=== PATIENT | female | born 1955 | race Asian ===

== ENCOUNTER 2016-10-26 16:06 | Inpatient (IN) | payer MEDICARE, MEDICAID ==
[~2016-10-26] VITALS: Ht 162.6 cm; Wt 100.7 kg
[~2016-10-26 16:06] MED LIST: AMLO5TAB88 PO; BACL-141 PO; BENA20TA3 PO; CHOL20004 PO; CLON0.1T PO; COLL30OI TP; DIPH25CA6 PO; DULO60CA44 PO; FLUT16SP15 NS; INSU100C3 SUBCUT; INSU3INS6 SQ; LINA145C PO; ONDA4TAB50 PO; OXYC30TA89 PO; PANT40TA4 PO; ROSU10TA24 PO; SEVE800T8 PO
[2016-10-26] MEDS ORDERED: SODIUM CHLORIDE 0.9% 500 ML IV ONE (16:44)
[2016-10-26] MEDS ORDERED: DEXTROSE 50% WATER 50ML SYRINGE IV ONE (16:45)
[2016-10-26 17:15] LABS: BG BASE EXCESS -0.3 mmol/L (-2.0-2.0); BG CARBOXYHEMOGLOBIN 0.9 % (0.5-1.5); BG DEOXYHEMOGLOBIN 4.9 % (0.0-5.0); BG FRACTION INSPIRED OXYGEN 21; BG HCO3 ACT 23.7 mmol/L (22.0-26.0); BG METHEMOGLOBIN 0.1 % (0.0-1.5); BG OXYGEN SATURATION 95.1 % (92.0-98.5); BG OXYHEMOGLOBIN 94.1 % (94.0-97.0); BG PCO2 36.5 mmHg (35.0-45.0); BG PO2 74.6 mmHg (75.0-100.0); BG SAMPLE SITE RIGHT RADIAL; BG TOTAL HEMOGLOBIN 12.6 g/dL (12.0-18.0); BG VENT MODE ROOM AIR
[2016-10-26 17:18] LABS: BASOPHILS % 1.2 % (0.0-2.0); HEMATOCRIT. 38.2 % (36.0-48.0); HEMOGLOBIN. 12.9 g/dL (12.0-16.0); LYMPHOCYTES % 31.9 % (20.0-50.0); MEAN CORPUSCULAR HEMOGLOBIN 29.5 pg (28.0-32.0); MEAN CORPUSCULAR VOLUME 87.5 fL (81.0-99.0); MONOCYTES % 8.9 % (2.0-8.0); PLATELET 185 x1000/uL (130-400); RED BLOOD CELL COUNT 4.37 mill/uL (4.2-5.4); RED CELL DISTRIBUTION WIDTH 13.3 % (11.6-14.6)
[2016-10-26 17:20] LABS: PROTHROMBIN TIME 10.7 sec
[2016-10-26 17:22] LABS: CARBON DIOXIDE 26 mEq/L (21-32); CHLORIDE 104 mEq/L (98-107)
[2016-10-26 17:24] LABS: ETHANOL BLOOD < 10 mg/dL
[2016-10-26 17:30] LABS: TROPONIN I < 0.02 ng/mL (0.00-0.04)
[2016-10-26] MEDS ORDERED: DEXT 10% WATER 1,000 ML IV ONE (21:30)
[2016-10-27 06:00] VITALS: BP 143/66
[2016-10-27 06:25] VITALS: BP 143/66
[2016-10-27] MEDS ORDERED: TIZA4TAB4 PO (06:55)
[2016-10-27] MEDS ORDERED: CARI350T27 PO (06:55)
[2016-10-27] MEDS ORDERED: LUBI24CA5 PO (06:55)
[2016-10-27] MEDS ORDERED: ASPI-1035 PO (06:55)
[2016-10-27] MEDS ORDERED: ALPR1TAB2 PO (06:55)
[2016-10-27] MEDS ORDERED: DIPHENHYDRAMINE 50MG/ML VIAL IV PRN (07:00)
[2016-10-27] MEDS ORDERED: NA PHOS,M-B/NA PHOS,DI-BA ENEMA 118ML PR PRN (07:00)
[2016-10-27] MEDS ORDERED: CLONIDINE 0.1MG TABLET PO PRN (07:00)
[2016-10-27] MEDS ORDERED: ACETAMINOPHEN 650MG/20.3ML UDC GT PRN (07:00)
[2016-10-27] MEDS ORDERED: DOCUSATE SODIUM 100MG CAPSULE PO PRN (07:00)
[2016-10-27] MEDS ORDERED: GUAIFENESIN 200MG/10ML SUGAR FREE UDC PO PRN (07:00)
[2016-10-27] MEDS ORDERED: MAGNESIUM/ALUMINUM HYDROXIDE/SIMETHICONE 30ML UDC PO PRN (07:00)
[2016-10-27] MEDS ORDERED: ACETAMINOPHEN 650MG SUPP PR PRN (07:00)
[2016-10-27] MEDS ORDERED: TIZANIDINE HCL 4MG TABLET PO PRN (07:15)
[2016-10-27] MEDS ORDERED: DEXTROSE 10% WATER 500 ML IV ONE (07:15)
[2016-10-27] MEDS ORDERED: PANTOPRAZOLE 40MG DR TABLET PO PRN (07:15)
[2016-10-27] MEDS ORDERED: DEXTROSE 50% WATER 50ML SYRINGE IV PRN (07:15)
[2016-10-27] MEDS: BLOOD SUGAR DIAGNOSTIC STRIP TEST SCH ×4 (07:42→21:00)
[2016-10-27 08:00] VITALS: BP 182/78
[2016-10-27] MEDS ORDERED: DEXT 10% WATER 1,000 ML IV SCH (08:15)
[2016-10-27] MEDS ORDERED: DEXT 5%/0.45% NACL 500 ML IV ONE (08:30)
[2016-10-27 08:42] LABS: BASOPHILS % 1.4 % (0.0-2.0); EOSINOPHILS % 1.6 % (0.0-5.0); HEMOGLOBIN. 12.2 g/dL (12.0-16.0); LYMPHOCYTES % 30.6 % (20.0-50.0); MEAN CORPUSCULAR HEMOGLOBIN 29.3 pg (28.0-32.0); MEAN CORPUSCULAR VOLUME 86.7 fL (81.0-99.0); MEAN PLATELET VOLUME 10.3 fl (7.4-10.4); MONOCYTES % 10.4 % (2.0-8.0); PLATELET 161 x1000/uL (130-400); RED BLOOD CELL COUNT 4.16 mill/uL (4.2-5.4); RED CELL DISTRIBUTION WIDTH 13.2 % (11.6-14.6)
[2016-10-27] MEDS: BACLOFEN 10MG TABLET PO SCH ×2 (09:00→17:00)
[2016-10-27] MEDS ORDERED: DIPHENHYDRAMINE 25MG CAPSULE PO PRN (09:00)
[2016-10-27] MEDS ORDERED: ONDANSETRON HCL 4MG TABLET PO PRN (09:00)
[2016-10-27] MEDS: DULOXETINE HCL 60MG DR CAPSULE PO SCH (09:00)
[2016-10-27] MEDS: SEVELAMER CARBONATE 800 MG TABLET PO SCH ×3 (09:08→18:10)
[2016-10-27] MEDS: CARISOPRODOL 350 MG TABLET PO SCH (09:08)
[2016-10-27] MEDS: AMLODIPINE 5MG TABLET PO SCH (09:09)
[2016-10-27] MEDS: ASPIRIN 81MG EC TABLET PO SCH (09:10)
[2016-10-27] MEDS: BENAZEPRIL 20MG TABLET PO SCH (09:10)
[2016-10-27] MEDS: CLONIDINE 0.1MG TABLET PO SCH ×3 (09:10→22:00)
[2016-10-27] MEDS: INSULIN LISPRO 100 UNITS/ML SUBCUT SCH ×4 (09:12→22:24)
[2016-10-27 09:14] LABS: CARBON DIOXIDE 24 mEq/L (21-32); CHLORIDE 105 mEq/L (98-107)
[2016-10-27 12:00] VITALS: BP 108/56
[2016-10-27] MEDS: MORPHINE SULFATE 2 MG/ML CPJ (NOT FOR IM USE) IV PRN (13:27)
[2016-10-27 15:51] LABS: CREATINE KINASE 28 IU/L (26-192); CREATINE KINASE MB FRACTION < 0.5 ng/mL (0.5-3.6); TROPONIN I < 0.02 ng/mL (0.00-0.04)
[2016-10-27 16:00] VITALS: BP 110/68
[2016-10-27 20:00] VITALS: BP 106/62
[2016-10-27] MEDS: ACETAMINOPHEN 325MG TABLET PO PRN (22:21)
[2016-10-27 23:00] LABS: CREATINE KINASE 22 IU/L (26-192); CREATINE KINASE MB FRACTION < 0.5 ng/mL (0.5-3.6); TROPONIN I < 0.02 ng/mL (0.00-0.04)
[2016-10-28] VITALS: BP 104/58
[2016-10-28] MEDS: ACETAMINOPHEN 325MG TABLET PO PRN (04:48)
[2016-10-28] MEDS: CLONIDINE 0.1MG TABLET PO SCH ×3 (05:25→18:52)
[2016-10-28] MEDS: BLOOD SUGAR DIAGNOSTIC STRIP TEST SCH ×4 (07:40→20:24)
[2016-10-28 08:00] VITALS: BP 122/64
[2016-10-28] MEDS: SEVELAMER CARBONATE 800 MG TABLET PO SCH ×4 (08:10→18:49)
[2016-10-28 08:35] LABS: BASOPHILS % 1.3 % (0.0-2.0); EOSINOPHILS % 2.1 % (0.0-5.0); HEMATOCRIT. 33.9 % (36.0-48.0); HEMOGLOBIN. 11.5 g/dL (12.0-16.0); MEAN CORPUSCULAR HEMOGLOBIN 29.4 pg (28.0-32.0); MEAN CORPUSCULAR VOLUME 87.1 fL (81.0-99.0); MEAN PLATELET VOLUME 9.9 fl (7.4-10.4); MONOCYTES % 10.3 % (2.0-8.0); NEUTROPHILS % 49.3 % (40.0-76.0); PLATELET 148 x1000/uL (130-400); RED BLOOD CELL COUNT 3.89 mill/uL (4.2-5.4); RED CELL DISTRIBUTION WIDTH 13.5 % (11.6-14.6)
[2016-10-28] MEDS: AMLODIPINE 5MG TABLET PO SCH ×2 (09:00→10:24)
[2016-10-28] MEDS: BENAZEPRIL 20MG TABLET PO SCH ×2 (09:00→10:24)
[2016-10-28] MEDS: DULOXETINE HCL 60MG DR CAPSULE PO SCH ×2 (09:00→10:23)
[2016-10-28] MEDS: ASPIRIN 81MG EC TABLET PO SCH (10:23)
[2016-10-28] MEDS: BACLOFEN 10MG TABLET PO SCH ×2 (10:23→17:00)
[2016-10-28] MEDS: INSULIN LISPRO 100 UNITS/ML SUBCUT SCH ×4 (10:25→20:24)
[2016-10-28] MEDS: CARISOPRODOL 350 MG TABLET PO SCH (10:38)
[2016-10-28] MEDS: MORPHINE SULFATE 2 MG/ML CPJ (NOT FOR IM USE) IV PRN ×2 (11:04→18:49)
[2016-10-28 12:00] VITALS: BP 132/59
[2016-10-28] MEDS: INSULIN DETEMIR UD 100 UNITS/ML SYR SUBCUT SCH (14:38)
[2016-10-28 16:00] VITALS: BP 161/76
[2016-10-28] MEDS ORDERED: NON FORMULARY PATIENT HOME MED EA PO SCH (16:45)
[2016-10-28 20:00] VITALS: BP 158/66
[2016-10-28] MEDS: ATORVASTATIN CALCIUM 10MG TABLET PO SCH (20:07)
[2016-10-28] MEDS: ONDANSETRON HCL 4MG/2ML VIAL IV PRN (20:07)
[2016-10-29] VITALS: BP 114/66
[2016-10-29 04:00] VITALS: BP 125/56
[2016-10-29] MEDS: CLONIDINE 0.1MG TABLET PO SCH ×3 (06:00→22:00)
[2016-10-29] MEDS: BLOOD SUGAR DIAGNOSTIC STRIP TEST SCH ×4 (06:09→21:00)
[2016-10-29 07:53] LABS: BASOPHILS % 1.2 % (0.0-2.0); EOSINOPHILS % 2.4 % (0.0-5.0); HEMATOCRIT. 35.9 % (36.0-48.0); HEMOGLOBIN. 12.1 g/dL (12.0-16.0); LYMPHOCYTES % 29.5 % (20.0-50.0); MEAN CORPUSCULAR VOLUME 85.8 fL (81.0-99.0); MEAN PLATELET VOLUME 10.2 fl (7.4-10.4); MONOCYTES % 7.7 % (2.0-8.0); NEUTROPHILS % 59.2 % (40.0-76.0); PLATELET 169 x1000/uL (130-400); RED BLOOD CELL COUNT 4.19 mill/uL (4.2-5.4); RED CELL DISTRIBUTION WIDTH 13.4 % (11.6-14.6)
[2016-10-29 08:00] VITALS: BP 146/65
[2016-10-29] MEDS: SEVELAMER CARBONATE 800 MG TABLET PO SCH ×3 (08:10→18:54)
[2016-10-29] MEDS: FAMOTIDINE 20MG TABLET PO SCH (09:00)
[2016-10-29] MEDS: BENAZEPRIL 20MG TABLET PO SCH (09:00)
[2016-10-29] MEDS: CARISOPRODOL 350 MG TABLET PO SCH (09:00)
[2016-10-29] MEDS: AMLODIPINE 5MG TABLET PO SCH (09:00)
[2016-10-29] MEDS: DULOXETINE HCL 60MG DR CAPSULE PO SCH (09:00)
[2016-10-29] MEDS: BACLOFEN 10MG TABLET PO SCH ×2 (09:00→17:00)
[2016-10-29] MEDS: ASPIRIN 81MG EC TABLET PO SCH (10:14)
[2016-10-29] MEDS: INSULIN LISPRO 100 UNITS/ML SUBCUT SCH ×4 (10:17→22:37)
[2016-10-29] MEDS: INSULIN DETEMIR UD 100 UNITS/ML SYR SUBCUT SCH (10:22)
[2016-10-29 12:00] VITALS: BP 145/81
[2016-10-29 16:00] VITALS: BP 124/72
[2016-10-29 20:00] VITALS: BP 116/73
[2016-10-29] MEDS: ATORVASTATIN CALCIUM 10MG TABLET PO SCH (22:18)
[2016-10-30] VITALS: BP_SYST 104; BP_SYST 124; BP_DIAS 58
[2016-10-30 04:00] VITALS: BP 115/62
[2016-10-30 05:41] LABS: BASOPHILS % 1.1 % (0.0-2.0); EOSINOPHILS % 1.8 % (0.0-5.0); HEMATOCRIT. 34.1 % (36.0-48.0); HEMOGLOBIN. 11.6 g/dL (12.0-16.0); LYMPHOCYTES % 32.7 % (20.0-50.0); MEAN CORPUSCULAR HEMOGLOBIN 29.5 pg (28.0-32.0); MEAN CORPUSCULAR VOLUME 86.9 fL (81.0-99.0); MEAN PLATELET VOLUME 10.1 fl (7.4-10.4); MONOCYTES % 9.3 % (2.0-8.0); NEUTROPHILS % 55.1 % (40.0-76.0); PLATELET 166 x1000/uL (130-400); RED BLOOD CELL COUNT 3.92 mill/uL (4.2-5.4)
[2016-10-30] MEDS: CLONIDINE 0.1MG TABLET PO SCH ×3 (06:00→21:12)
[2016-10-30] MEDS: BLOOD SUGAR DIAGNOSTIC STRIP TEST SCH ×4 (06:02→20:44)
[2016-10-30 08:00] VITALS: BP 161/74
[2016-10-30] MEDS: SEVELAMER CARBONATE 800 MG TABLET PO SCH ×4 (08:10→18:31)
[2016-10-30] MEDS: BENAZEPRIL 20MG TABLET PO SCH (09:00)
[2016-10-30] MEDS: DULOXETINE HCL 60MG DR CAPSULE PO SCH (09:00)
[2016-10-30] MEDS: BACLOFEN 10MG TABLET PO SCH ×2 (09:00→17:00)
[2016-10-30] MEDS: INSULIN LISPRO 100 UNITS/ML SUBCUT SCH ×4 (09:51→20:46)
[2016-10-30] MEDS: INSULIN DETEMIR UD 100 UNITS/ML SYR SUBCUT SCH (09:51)
[2016-10-30] MEDS: FAMOTIDINE 20MG TABLET PO SCH (09:52)
[2016-10-30] MEDS: CARISOPRODOL 350 MG TABLET PO SCH (09:52)
[2016-10-30] MEDS: ASPIRIN 81MG EC TABLET PO SCH (09:52)
[2016-10-30] MEDS: AMLODIPINE 5MG TABLET PO SCH (09:53)
[2016-10-30 12:00] VITALS: BP 160/83
[2016-10-30] MEDS ORDERED: LACTULOSE 20G/30ML UDC PO PRN (15:00)
[2016-10-30] MEDS ORDERED: LACTULOSE 20G/30ML UDC PO SCH (15:45)
[2016-10-30] MEDS ORDERED: HEPARIN SODIUM 1,000 UNIT/1ML VIAL IV NR (16:00)
[2016-10-30] MEDS: DOCUSATE SODIUM 100MG CAPSULE PO SCH (18:32)
[2016-10-30 20:00] VITALS: BP 145/72
[2016-10-30] MEDS: ATORVASTATIN CALCIUM 10MG TABLET PO SCH (20:44)
[2016-10-31] VITALS: BP 145/79
[2016-10-31] MEDS: ONDANSETRON HCL 4MG/2ML VIAL IV PRN (00:27)
[2016-10-31] MEDS: MORPHINE SULFATE 2 MG/ML CPJ (NOT FOR IM USE) IV PRN (00:31)
[2016-10-31 04:00] VITALS: BP 126/66
[2016-10-31 05:01] LABS: BASOPHILS % 1.4 % (0.0-2.0); EOSINOPHILS % 1.1 % (0.0-5.0); HEMATOCRIT. 34.9 % (36.0-48.0); HEMOGLOBIN. 11.8 g/dL (12.0-16.0); LYMPHOCYTES % 27.9 % (20.0-50.0); MEAN CORPUSCULAR HEMOGLOBIN 29.3 pg (28.0-32.0); MEAN CORPUSCULAR VOLUME 86.7 fL (81.0-99.0); MEAN PLATELET VOLUME 10.2 fl (7.4-10.4); MONOCYTES % 8.4 % (2.0-8.0); NEUTROPHILS % 61.2 % (40.0-76.0); PLATELET 152 x1000/uL (130-400); RED BLOOD CELL COUNT 4.03 mill/uL (4.2-5.4); RED CELL DISTRIBUTION WIDTH 13.4 % (11.6-14.6)
[2016-10-31] MEDS: CLONIDINE 0.1MG TABLET PO SCH (05:32)
[2016-10-31] MEDS: BLOOD SUGAR DIAGNOSTIC STRIP TEST SCH ×2 (06:41→12:40)
[2016-10-31 08:00] VITALS: BP 153/78
[2016-10-31] MEDS: INSULIN LISPRO 100 UNITS/ML SUBCUT SCH ×2 (08:26→12:56)
[2016-10-31] MEDS: SEVELAMER CARBONATE 800 MG TABLET PO SCH (08:27)
[2016-10-31] MEDS ORDERED: LACTULOSE 20G/30ML UDC PO NR (08:30)
[2016-10-31] MEDS: CARISOPRODOL 350 MG TABLET PO SCH (09:00)
[2016-10-31] MEDS: DOCUSATE SODIUM 100MG CAPSULE PO SCH (09:00)
[2016-10-31] MEDS: BACLOFEN 10MG TABLET PO SCH (09:00)
[2016-10-31] MEDS: DULOXETINE HCL 60MG DR CAPSULE PO SCH (09:00)
[2016-10-31] MEDS: FAMOTIDINE 20MG TABLET PO SCH (09:41)
[2016-10-31] MEDS: AMLODIPINE 5MG TABLET PO SCH (09:42)
[2016-10-31] MEDS: ASPIRIN 81MG EC TABLET PO SCH (09:42)
[2016-10-31] MEDS: BENAZEPRIL 20MG TABLET PO SCH (09:42)
[2016-10-31] MEDS: INSULIN DETEMIR UD 100 UNITS/ML SYR SUBCUT SCH (10:58)
[2016-10-31 12:00] VITALS: BP 143/82
== END 2016-10-31 14:00 | disposition left against medical advice (07) | DRG 682 ==
LOC: ER 16:09 → 7WST 20:39
PROVIDERS: ADMIT Internal Medicine Nephrology; ATTEND Internal Medicine Nephrology
PROC: 5A1D60Z (ICD-10-PCS; principal; 2016-10-27)
DX: I12.0 Hypertensive chronic kidney disease with stage 5 chronic kidney disease or end stage renal disease (principal); G93.41 Metabolic encephalopathy; N18.6 End stage renal disease; R45.851 Suicidal ideations; E11.22 Type 2 diabetes mellitus with diabetic chronic kidney disease; E11.649 Type 2 diabetes mellitus with hypoglycemia without coma; E78.5 Hyperlipidemia, unspecified; F32.9 Major depressive disorder, single episode, unspecified; Z53.21 Procedure and treatment not carried out due to patient leaving prior to being seen by health care provider; E78.00 Pure hypercholesterolemia, unspecified; D64.9 Anemia, unspecified; K59.00 Constipation, unspecified; Z99.2 Dependence on renal dialysis; Z86.73 Personal history of transient ischemic attack (TIA), and cerebral infarction without residual deficits; Z79.4 Long term (current) use of insulin; Z79.899 Other long term (current) drug therapy; Z90.49 Acquired absence of other specified parts of digestive tract; Z90.89 Acquired absence of other organs
CPT/HCPCS: 36415; 36600; 70450; 71010; 74000; 80048; 80053; 82375; 82550; 82553; 82805; 82962; 83605; 83880; 84484; 85025; 85610; 87040; 93005; 93970; 96361; 96374; 97162; 97530; 99285; G0482; J1644; J1815; J2270; J2405; J7030; J7040; Q0162

== ENCOUNTER 2020-11-01 12:46 | Inpatient (IN) | payer MEDICARE, MEDICAID ==
[~2020-11-01] VITALS: Ht 162.6 cm; Wt 107.7 kg
[~2020-11-01 12:46] MED LIST changes: +ALPR1TAB2 PO; +ASPI-1497 PO; +B25 PO; +BENA20TA10 PO; -BENA20TA3 PO; +CARI350T27 PO; -DIPH25CA6 PO; +LUBI24CA5 PO; +OXYC-582 PO; -OXYC30TA89 PO; -PANT40TA4 PO; +PANT40TA51 PO; -ROSU10TA24 PO; +ROSU10TA25 PO; +TIZA4TAB5 PO
[2020-11-01] MEDS ORDERED: VANCOMYCIN 1 G PREMIX 200 ML IV NR ×2 (13:45→22:00)
[2020-11-01] MEDS ORDERED: FUROSEMIDE 100MG/10ML VIAL IV NR (15:04)
[2020-11-01] MEDS ORDERED: ALBUTEROL (0.083%) 2.5MG/3ML NEB HHN NR (15:15)
[2020-11-01] MEDS ORDERED: SODIUM POLYSTYRENE SULFONATE 15 G/60 ML BOT PO NR (15:15)
[2020-11-01] MEDS ORDERED: INSULIN REGULAR (HUMULIN R) 300UNITS/3ML VIAL IV NR (15:15)
[2020-11-01] MEDS ORDERED: SODIUM BICARBONATE 8.4% 1 MEQ/ML 50ML SYR IV NR (15:15)
[2020-11-01] MEDS ORDERED: DEXTROSE 50% WATER 50ML SYRINGE IV NR (15:15)
[2020-11-01] MEDS ORDERED: CALCIUM CHLORIDE 1GM/10ML SYR IV NR (15:15)
[2020-11-01] MEDS ORDERED: SODIUM POLYSTYRENE SULFONATE 15 G/60 ML BOT PO ONE (15:30)
[2020-11-01] MEDS ORDERED: LORAZEPAM 0.5MG TABLET PO ONE (15:45)
[2020-11-01 19:05] LABS: BASOPHILS % 1.2 % (0.0-2.0); EOSINOPHILS % 1.9 % (0.0-5.0); HEMATOCRIT. 32.6 % (36.0-48.0); LYMPHOCYTES % 15.1 % (20.0-50.0); MEAN CORPUSCULAR HEMOGLOBIN 31.6 pg (28.0-32.0); MEAN CORPUSCULAR VOLUME 94.1 fL (81.0-99.0); MEAN PLATELET VOLUME 9.5 fl (7.4-10.4); MONOCYTES % 10.1 % (2.0-8.0); NEUTROPHILS % 71.7 % (40.0-76.0); PLATELET 178 x1000/uL (130-400); RED BLOOD CELL COUNT 3.47 mill/uL (4.2-5.4); RED CELL DISTRIBUTION WIDTH 13.2 % (11.6-14.6)
[2020-11-01 19:08] LABS: CHLORIDE 106 mEq/L (98-107)
[2020-11-01 19:10] LABS: PROTHROMBIN TIME 10.9 sec (9.6-11.0)
[2020-11-01] MEDS ORDERED: CLONIDINE 0.1MG TABLET PO PRN (19:45)
[2020-11-01] MEDS ORDERED: HYDROCODONE/ACETAMINOPHEN 5/325MG TABLET PO PRN (19:45)
[2020-11-01] MEDS ORDERED: ONDANSETRON HCL 4MG/2ML INJ IV PRN (19:45)
[2020-11-01] MEDS ORDERED: LORAZEPAM 0.5MG TABLET PO PRN (19:45)
[2020-11-01] MEDS ORDERED: ACETAMINOPHEN 325MG TABLET PO PRN (19:45)
[2020-11-01] MEDS ORDERED: DOCUSATE SODIUM 100MG CAPSULE PO PRN (19:45)
[2020-11-01 20:49] LABS: CLARITY URINE CLEAR (CLEAR); COLOR URINE YELLOW (YELLOW); KETONES URINE NEGATIVE (NEGATIVE); LEUKOCYTE ESTERASE URINE NEGATIVE (NEGATIVE); NITRITE URINE NEGATIVE (NEGATIVE); OCCULT BLOOD URINE TRACE (NEGATIVE); PROTEIN URINE 2+ (NEGATIVE); SPECIFIC GRAVITY URINE 1.008 (1.005-1.030); UROBILINOGEN URINE 0.2 E.U./dL (0.2-1.0)
[2020-11-01] MEDS ORDERED: PIPERACILLIN/TAZOBACTAM 2.25 G in DEXTROSE 5% WATER 50 ML IV SCH (21:00)
[2020-11-01] MEDS ORDERED: PIPERACILLIN/TAZOBACTAM 3.375 G/VIAL IV SCH (22:00)
[2020-11-02 04:30] VITALS: BP 160/59
[2020-11-02 06:05] VITALS: BP 160/59
[2020-11-02 07:03] LABS: BASOPHILS % 0.6 % (0.0-2.0); EOSINOPHILS % 1.2 % (0.0-5.0); HEMATOCRIT. 29.3 % (36.0-48.0); HEMOGLOBIN. 10.1 g/dL (12.0-16.0); LYMPHOCYTES % 7.1 % (20.0-50.0); MEAN CORPUSCULAR HEMOGLOBIN 32.1 pg (28.0-32.0); MEAN CORPUSCULAR VOLUME 92.9 fL (81.0-99.0); MEAN PLATELET VOLUME 9.3 fl (7.4-10.4); MONOCYTES % 8.4 % (2.0-8.0); NEUTROPHILS % 82.7 % (40.0-76.0); PLATELET 151 x1000/uL (130-400); RED BLOOD CELL COUNT 3.15 mill/uL (4.2-5.4); RED CELL DISTRIBUTION WIDTH 13.5 % (11.6-14.6)
[2020-11-02 08:00] VITALS: BP 135/58
[2020-11-02] MEDS ORDERED: MAGNESIUM/ALUMINUM HYDROXIDE/SIMETHICONE 30ML UDC PO PRN (09:30)
[2020-11-02] MEDS ORDERED: ONDANSETRON HCL 4MG/2ML INJ IV PRN (09:30)
[2020-11-02] MEDS ORDERED: DIPHENHYDRAMINE 50MG/ML VIAL IV PRN (09:30)
[2020-11-02] MEDS ORDERED: GUAIFENESIN 200MG/10ML SUGAR FREE UDC PO PRN (09:30)
[2020-11-02] MEDS ORDERED: ZOLPIDEM TARTRATE 5MG TABLET PO PRN (09:30)
[2020-11-02] MEDS ORDERED: DEXTROSE 50% WATER 50ML SYRINGE IV PRN (09:30)
[2020-11-02] MEDS ORDERED: IPRATROPIUM/ALBUTEROL 0.5-3(2.5)MG/3ML NEB NEB PRN (09:30)
[2020-11-02] MEDS: LOSARTAN POTASSIUM 50 MG TABLET PO SCH (11:03)
[2020-11-02] MEDS: AMLODIPINE 10MG TABLET PO SCH (11:03)
[2020-11-02] MEDS: ENOXAPARIN 30MG/0.3ML SYR SUBCUT SCH (11:04)
[2020-11-02 12:00] VITALS: BP 164/67
[2020-11-02] MEDS: BLOOD SUGAR DIAGNOSTIC STRIP TEST SCH ×3 (12:22→21:00)
[2020-11-02] MEDS: SEVELAMER CARBONATE 800 MG TABLET PO SCH ×2 (12:29→16:43)
[2020-11-02] MEDS: INSULIN LISPRO 100 UNITS/ML SUBCUT SCH ×3 (12:30→22:09)
[2020-11-02 16:00] VITALS: BP 155/62
[2020-11-02] MEDS: PIPERACILLIN/TAZOBACTAM 2.25 G in DEXTROSE 5% WATER 50 ML IV SCH ×2 (16:43→18:00)
[2020-11-02 20:20] VITALS: BP 168/56
[2020-11-02] MEDS ORDERED: FAMOTIDINE 20MG TABLET PO SCH (21:00)
[2020-11-02] MEDS ORDERED: DOXAZOSIN MESYLATE 2MG TABLET PO SCH (21:00)
[2020-11-03] VITALS (18 sets, daily range): BP systolic 117–178; BP diastolic 54–76
[2020-11-03] MEDS: PIPERACILLIN/TAZOBACTAM 2.25 G in DEXTROSE 5% WATER 50 ML IV SCH ×2 (02:00→10:24)
[2020-11-03] MEDS: BLOOD SUGAR DIAGNOSTIC STRIP TEST SCH (07:09)
[2020-11-03] MEDS: SEVELAMER CARBONATE 800 MG TABLET PO SCH (07:10)
[2020-11-03] MEDS: INSULIN LISPRO 100 UNITS/ML SUBCUT SCH (07:11)
[2020-11-03] MEDS ORDERED: LIDOCAINE HCL 1% 20ML VIAL (Pyxis) INJ ONE (08:24)
[2020-11-03] MEDS ORDERED: FENTANYL CITRATE/PF 50MCG/ML 2ML VIAL ONE (08:24)
[2020-11-03] MEDS ORDERED: HEPARIN 1000 UNITS/ML 10ML ONE (08:25)
[2020-11-03] MEDS ORDERED: FENTANYL CITRATE/PF 50MCG/ML 2ML VIAL IV NR (08:50)
[2020-11-03] MEDS: AMLODIPINE 10MG TABLET PO SCH (09:00)
[2020-11-03] MEDS: LOSARTAN POTASSIUM 50 MG TABLET PO SCH (10:25)
[2020-11-03] MEDS: ENOXAPARIN 30MG/0.3ML SYR SUBCUT SCH (10:33)
== END 2020-11-03 13:05 | disposition home or self-care (01) | DRG 314 ==
LOC: ER 12:46 → 8WST 20:34 → EDBEDREQTM 20:36 → EDBEDREQ 20:36 → EDBEDREQSVC 20:36 → ENRESERV 11-02 03:21
PROVIDERS: ADMIT Internal Medicine; ATTEND Internal Medicine
PROC: 0JPV3XZ Removal of Tunneled Vascular Access Device from Upper Extremity Subcutaneous Tissue and Fascia, Percutaneous Approach (ICD-10-PCS; 2020-11-01)
PROC: 05PYX3Z Removal of Infusion Device from Upper Vein, External Approach (ICD-10-PCS; 2020-11-01)
PROC: 5A1D70Z Performance of Urinary Filtration, Intermittent, Less than 6 Hours Per Day (ICD-10-PCS; 2020-11-02)
PROC: 0JH63XZ Insertion of Tunneled Vascular Access Device into Chest Subcutaneous Tissue and Fascia, Percutaneous Approach (ICD-10-PCS; principal; 2020-11-03)
PROC: 02HV33Z Insertion of Infusion Device into Superior Vena Cava, Percutaneous Approach (ICD-10-PCS; 2020-11-03)
PROC: B5181ZA Fluoroscopy of Superior Vena Cava using Low Osmolar Contrast, Guidance (ICD-10-PCS; 2020-11-03)
PROC: B548ZZA Ultrasonography of Superior Vena Cava, Guidance (ICD-10-PCS; 2020-11-03)
DX: T80.211A Bloodstream infection due to central venous catheter, initial encounter (principal); A41.02 Sepsis due to Methicillin resistant Staphylococcus aureus; N18.6 End stage renal disease; E87.2 Acidosis; I12.0 Hypertensive chronic kidney disease with stage 5 chronic kidney disease or end stage renal disease; Z68.41 Body mass index [BMI] 40.0-44.9, adult; D63.8 Anemia in other chronic diseases classified elsewhere; E11.22 Type 2 diabetes mellitus with diabetic chronic kidney disease; E66.9 Obesity, unspecified; E83.39 Other disorders of phosphorus metabolism; E83.51 Hypocalcemia; E87.5 Hyperkalemia; F17.210 Nicotine dependence, cigarettes, uncomplicated; Y83.8 Other surgical procedures as the cause of abnormal reaction of the patient, or of later complication, without mention of misadventure at the time of the procedure; Z20.822 Contact with and (suspected) exposure to COVID-19; K59.00 Constipation, unspecified; Z83.3 Family history of diabetes mellitus; Z86.73 Personal history of transient ischemic attack (TIA), and cerebral infarction without residual deficits; Z99.2 Dependence on renal dialysis; Z79.82 Long term (current) use of aspirin; Z79.1 Long term (current) use of non-steroidal anti-inflammatories (NSAID); Z79.899 Other long term (current) drug therapy; Z90.49 Acquired absence of other specified parts of digestive tract; Z98.891 History of uterine scar from previous surgery; Y92.89 Other specified places as the place of occurrence of the external cause
CPT/HCPCS: 36415; 71045; 76937; 77001; 80048; 80053; 80069; 80202; 81003; 82962; 83036; 83605; 84145; 84484; 85025; 87426; 93005; 93970; 94644; 99152; 99153; 99291; C1750; C1769; C1887; J1644; J1650; J1815; J1940; J2543; J3010; J3370; J3490; J7040; J7060; L8514; G0500

== ENCOUNTER → 2021-02-17 | Day surgery (SDC) | payer MEDICARE, MEDICAID ==
[~2021-02-17] VITALS: Ht 162.6 cm; Wt 99.0 kg
[~2021-02-17] MED LIST changes: +BACITRACIN 15GM TUBE TOP ONE; +BUPIVACAINE HCL/PF 0.5% (5MG/ML) 10ML ONE; +CEFAZOLIN SODIUM 1000MG/VIAL ONE; +CINA30 PO; +FENTANYL CITRATE/PF 50MCG/ML 2ML VIAL ONE; +GLYCOPYRROLATE 0.2 MG/ML 2ML VIAL ONE; +HEPARIN 1000 UNITS/ML 10ML ONE; +HEPARIN SODIUM 1,000 UNIT/1ML VIAL IV NR; +HEPARIN SODIUM 1,000 UNIT/1ML VIAL IV ONE; +HYDR-4135 PO; +LIDOCAINE HCL 1% 20ML VIAL (Pyxis) INJ ONE; +METOCLOPRAMIDE HCL 10MG/2ML VIAL ONE; +MIDAZOLAM HCL 2 MG/2 ML VIAL ONE; +ONDANSETRON HCL 4MG/2ML INJ ONE; +POLYMYXIN B SULFATE 500000 UNITS/VIAL ONE; +PROPOFOL 200MG/20ML VIAL IV ONE; +RAMI10CA68 PO; +ROPIVACAINE HCL 10MG/ML 20 ML VIAL EPI ONE; +SODIUM CHLORIDE 0.9% 500 ML IV SCH; +SUCCINYLCHOLINE CHLORIDE 200MG/10ML IV ONE; +THROMBIN (BOVINE) 5000 UNITS/VIAL TOP ONE
[2021-02-17 05:48] LABS: BASOPHILS % 1.2 % (0.0-2.0); EOSINOPHILS % 3.8 % (0.0-5.0); HEMATOCRIT. 34.5 % (36.0-48.0); HEMOGLOBIN. 11.7 g/dL (12.0-16.0); LYMPHOCYTES % 15.5 % (20.0-50.0); MEAN CORPUSCULAR HEMOGLOBIN 32.4 pg (28.0-32.0); MEAN CORPUSCULAR VOLUME 95.6 fL (81.0-99.0); MONOCYTES % 10.1 % (2.0-8.0); NEUTROPHILS % 69.4 % (40.0-76.0); PLATELET 159 x1000/uL (130-400); RED BLOOD CELL COUNT 3.61 mill/uL (4.2-5.4); RED CELL DISTRIBUTION WIDTH 12.9 % (11.6-14.6)
[2021-02-17 05:57] LABS: PARTIAL THROMBOPLASTIN TIME 27.1 sec (23.4-31.0); PROTHROMBIN TIME 10.5 sec (9.6-11.0)
== END | disposition home or self-care (01) ==
LOC: OR 05:11
PROVIDERS: ATTEND Surgery Vascular Surgery
DX: I12.0 Hypertensive chronic kidney disease with stage 5 chronic kidney disease or end stage renal disease (principal); N18.6 End stage renal disease; E11.22 Type 2 diabetes mellitus with diabetic chronic kidney disease; E66.01 Morbid (severe) obesity due to excess calories; M25.512 Pain in left shoulder; I44.7 Left bundle-branch block, unspecified; F41.9 Anxiety disorder, unspecified; F32.9 Major depressive disorder, single episode, unspecified; Z79.4 Long term (current) use of insulin; Z79.899 Other long term (current) drug therapy; Z98.890 Other specified postprocedural states; Z82.49 Family history of ischemic heart disease and other diseases of the circulatory system; Z83.3 Family history of diabetes mellitus; Z86.73 Personal history of transient ischemic attack (TIA), and cerebral infarction without residual deficits; Z20.822 Contact with and (suspected) exposure to COVID-19
CPT/HCPCS: 36415; 36830; 64415; 80048; 85025; 85610; 85730; 87426; 93005; C1768; J0330; J0690; J1644; J2250; J2405; J2704; J2765; J2795; J3010; J3490; J7040; A4565

== ENCOUNTER 2021-03-29 13:10 | Inpatient (IN) | payer MEDICARE, MEDICAID ==
[~2021-03-29] VITALS: Ht 162.6 cm; Wt 99.3 kg
[~2021-03-29 13:10] MED LIST changes: -ALPR1TAB2 PO; -ASPI-1497 PO; -B25 PO; -BACITRACIN 15GM TUBE TOP ONE; -BACL-141 PO; -BENA20TA10 PO; -BUPIVACAINE HCL/PF 0.5% (5MG/ML) 10ML ONE; -CARI350T27 PO; -CEFAZOLIN SODIUM 1000MG/VIAL ONE; -CHOL20004 PO; -CLON0.1T PO; -COLL30OI TP; -DULO60CA44 PO; -FENTANYL CITRATE/PF 50MCG/ML 2ML VIAL ONE; -FLUT16SP15 NS; -GLYCOPYRROLATE 0.2 MG/ML 2ML VIAL ONE; -HEPARIN 1000 UNITS/ML 10ML ONE; -HEPARIN SODIUM 1,000 UNIT/1ML VIAL IV NR; -HEPARIN SODIUM 1,000 UNIT/1ML VIAL IV ONE; -LIDOCAINE HCL 1% 20ML VIAL (Pyxis) INJ ONE; -LINA145C PO; -LUBI24CA5 PO; -METOCLOPRAMIDE HCL 10MG/2ML VIAL ONE; -MIDAZOLAM HCL 2 MG/2 ML VIAL ONE; -ONDA4TAB50 PO; -ONDANSETRON HCL 4MG/2ML INJ ONE; -PANT40TA51 PO; -POLYMYXIN B SULFATE 500000 UNITS/VIAL ONE; -PROPOFOL 200MG/20ML VIAL IV ONE; -ROPIVACAINE HCL 10MG/ML 20 ML VIAL EPI ONE; -SEVE800T8 PO; -SODIUM CHLORIDE 0.9% 500 ML IV SCH; -SUCCINYLCHOLINE CHLORIDE 200MG/10ML IV ONE; -THROMBIN (BOVINE) 5000 UNITS/VIAL TOP ONE; -TIZA4TAB5 PO
[2021-03-29] MEDS ORDERED: MORPHINE SULFATE 4 MG/ML CPJ (NOT FOR IM USE) IV STA (13:22)
[2021-03-29 14:07] LABS: BASOPHILS % 0.8 % (0.0-2.0); EOSINOPHILS % 0.2 % (0.0-5.0); HEMATOCRIT. 30.2 % (36.0-48.0); HEMOGLOBIN. 10.3 g/dL (12.0-16.0); LYMPHOCYTES % 11.2 % (20.0-50.0); MEAN CORPUSCULAR HEMOGLOBIN 32.2 pg (28.0-32.0); MEAN CORPUSCULAR VOLUME 94.1 fL (81.0-99.0); MEAN PLATELET VOLUME 11.3 fl (7.4-10.4); MONOCYTES % 7.1 % (2.0-8.0); NEUTROPHILS % 80.7 % (40.0-76.0); PLATELET 119 x1000/uL (130-400); RED BLOOD CELL COUNT 3.21 mill/uL (4.2-5.4); RED CELL DISTRIBUTION WIDTH 13.3 % (11.6-14.6)
[2021-03-29 14:13] LABS: CHLORIDE 100 mEq/L (98-107)
[2021-03-29] MEDS ORDERED: MORPHINE SULFATE 2 MG/ML CPJ (NOT FOR IM USE) IV NR (15:35)
[2021-03-29 16:12] LABS: HEPATITIS B SURFACE ANTIGEN NEGATIVE
[2021-03-29] MEDS ORDERED: DEXTROSE 50% WATER 50ML SYRINGE IV PRN (16:45)
[2021-03-29] MEDS: INSULIN LISPRO 100 UNITS/ML SUBCUT SCH ×2 (17:10→21:00)
[2021-03-29 17:14] LABS: INR 1.1; PROTHROMBIN TIME 11.5 sec (9.6-11.0)
[2021-03-29] MEDS ORDERED: OXYCODONE HCL 5MG TABLET PO PRN (17:30)
[2021-03-29] MEDS: BLOOD SUGAR DIAGNOSTIC STRIP TEST SCH ×2 (17:55→21:00)
[2021-03-29 17:59] VITALS: BP 150/61
[2021-03-29 20:00] VITALS: BP 140/43
[2021-03-29] MEDS: HYDRALAZINE HCL 50MG TABLET PO SCH (21:06)
[2021-03-29] MEDS: ATORVASTATIN CALCIUM 10MG TABLET PO SCH (21:06)
[2021-03-29] MEDS: INSULIN GLARGINE UD 100 UNITS/ML SYR SUBCUT SCH (21:54)
[2021-03-30 00:01] VITALS: BP 123/43
[2021-03-30 04:00] VITALS: BP 132/41
[2021-03-30] MEDS: INSULIN LISPRO 100 UNITS/ML SUBCUT SCH ×4 (05:48→21:21)
[2021-03-30] MEDS: BLOOD SUGAR DIAGNOSTIC STRIP TEST SCH ×4 (05:48→21:23)
[2021-03-30 08:00] VITALS: BP 140/53
[2021-03-30] MEDS ORDERED: ZOLPIDEM TARTRATE 5MG TABLET PO PRN (08:00)
[2021-03-30] MEDS: HEPARIN 5000 UNITS/ML VIAL SUBCUT SCH ×3 (09:00→21:22)
[2021-03-30 12:00] VITALS: BP 145/56
[2021-03-30 16:00] VITALS: BP 149/54
[2021-03-30 20:00] VITALS: BP 144/49
[2021-03-30] MEDS: INSULIN GLARGINE UD 100 UNITS/ML SYR SUBCUT SCH (21:21)
[2021-03-30] MEDS: ATORVASTATIN CALCIUM 10MG TABLET PO SCH (21:22)
[2021-03-30] MEDS: HYDRALAZINE HCL 50MG TABLET PO SCH (21:23)
[2021-03-30] MEDS: ZOLPIDEM TARTRATE 5MG TABLET PO PRN (21:23)
[2021-03-31] VITALS (31 sets, daily range): BP systolic 81–147; BP diastolic 35–73
[2021-03-31] MEDS: ACETAMINOPHEN 325MG TABLET PO PRN (01:05)
[2021-03-31] MEDS ORDERED: PHENYLEPHRINE 50 MG in DEXT 5% WATER 245 ML IV PRN (02:45)
[2021-03-31] MEDS ORDERED: SODIUM CHLORIDE 0.9% 250 ML IV ONE (03:00)
[2021-03-31] MEDS: DEXT 5%/0.45% NACL 1000ML 1,000 ML IV SCH ×2 (03:24→23:31)
[2021-03-31] MEDS ORDERED: SODIUM CHLORIDE 0.9% 250 ML IV NR (03:45)
[2021-03-31 03:52] LABS: HEMATOCRIT. 23.7 % (36.0-48.0); HEMOGLOBIN. 8.1 g/dL (12.0-16.0); MEAN CORPUSCULAR HEMOGLOBIN 31.5 pg (28.0-32.0); MEAN CORPUSCULAR VOLUME 92.4 fL (81.0-99.0); MEAN PLATELET VOLUME 10.8 fl (7.4-10.4); PLATELET 99 x1000/uL (130-400); RED BLOOD CELL COUNT 2.56 mill/uL (4.2-5.4); RED CELL DISTRIBUTION WIDTH 13.2 % (11.6-14.6)
[2021-03-31] MEDS: PIPERACILLIN/TAZOBACTAM 3.375 G in DEXTROSE 5% WATER 50 ML IV SCH ×2 (04:00→23:31)
[2021-03-31] MEDS ORDERED: VANCOMYCIN 2,000 MG in DEXT 5% WATER 500 ML IV NR (04:00)
[2021-03-31 04:01] LABS: BG BASE EXCESS -3.3 mmol/L (-2.0-2.0); BG CARBOXYHEMOGLOBIN 0.4 % (0.5-1.5); BG DEOXYHEMOGLOBIN 2.4 % (0.0-5.0); BG FRACTION INSPIRED OXYGEN 28; BG HCO3 ACT 19.5 mmol/L (22.0-26.0); BG METHEMOGLOBIN 0.3 % (0.0-1.5); BG OXYGEN SATURATION 97.6 % (92.0-98.5); BG OXYHEMOGLOBIN 96.9 % (94.0-97.0); BG PCO2 27.3 mmHg (35.0-45.0); BG PH 7.472 (7.350-7.450); BG PO2 107.8 mmHg (75.0-100.0); BG SAMPLE SITE RIGHT RADIAL; BG TOTAL HEMOGLOBIN 9.3 g/dL (12.0-18.0)
[2021-03-31] MEDS: BLOOD SUGAR DIAGNOSTIC STRIP TEST SCH ×4 (07:50→21:00)
[2021-03-31 09:12] LABS: PLATELET ESTIMATE DECREASED
[2021-03-31] MEDS ORDERED: NALOXONE HCL 0.4MG/ML VIAL IV PRN (09:15)
[2021-03-31] MEDS: HEPARIN 5000 UNITS/ML VIAL SUBCUT SCH ×2 (09:33→21:25)
[2021-03-31] MEDS: INSULIN LISPRO 100 UNITS/ML SUBCUT SCH ×4 (09:35→21:00)
[2021-03-31] MEDS ORDERED: DILTIAZEM HCL 5MG/ML 5ML VIAL IV PRN (12:30)
[2021-03-31 12:48] LABS: CLARITY URINE CLOUDY (CLEAR); COLOR URINE YELLOW (YELLOW); KETONES URINE TRACE (NEGATIVE); LEUKOCYTE ESTERASE URINE 2+ (NEGATIVE); NITRITE URINE NEGATIVE (NEGATIVE); OCCULT BLOOD URINE NEGATIVE (NEGATIVE); PROTEIN URINE 2+ (NEGATIVE); SPECIFIC GRAVITY URINE 1.016 (1.005-1.030); UROBILINOGEN URINE 0.2 E.U./dL (0.2-1.0)
[2021-03-31] MEDS: AMIODARONE HCL 200 MG TABLET PO SCH ×2 (14:13→21:25)
[2021-03-31] MEDS: DILTIAZEM HCL 30MG TABLET PO SCH ×2 (14:13→21:24)
[2021-03-31] MEDS: MORPHINE SULFATE 2 MG/ML CPJ (NOT FOR IM USE) IV PRN ×2 (14:25→21:30)
[2021-03-31] MEDS: ATORVASTATIN CALCIUM 10MG TABLET PO SCH (21:25)
[2021-03-31] MEDS: INSULIN GLARGINE UD 100 UNITS/ML SYR SUBCUT SCH (23:33)
[2021-04-01] VITALS: BP 101/30
[2021-04-01] MEDS: MORPHINE SULFATE 2 MG/ML CPJ (NOT FOR IM USE) IV PRN ×2 (03:10→09:01)
[2021-04-01 04:00] VITALS: BP 102/35
[2021-04-01] MEDS: ACETAMINOPHEN 325MG TABLET PO PRN (04:54)
[2021-04-01] MEDS: DILTIAZEM HCL 30MG TABLET PO SCH ×3 (06:00→22:00)
[2021-04-01] MEDS: BLOOD SUGAR DIAGNOSTIC STRIP TEST SCH ×4 (06:30→21:00)
[2021-04-01] MEDS: INSULIN LISPRO 100 UNITS/ML SUBCUT SCH ×4 (06:33→21:00)
[2021-04-01 08:00] VITALS: BP 96/30
[2021-04-01] MEDS: HEPARIN 5000 UNITS/ML VIAL SUBCUT SCH ×2 (09:00→23:26)
[2021-04-01] MEDS: FOLIC ACID/VITAMIN B COMP W-C TABLET PO SCH (09:00)
[2021-04-01] MEDS: AMIODARONE HCL 200 MG TABLET PO SCH ×2 (09:00→21:00)
[2021-04-01] MEDS: PIPERACILLIN/TAZOBACTAM 3.375 G in DEXTROSE 5% WATER 50 ML IV SCH (09:03)
[2021-04-01 11:03] LABS: BASOPHILS % 0.6 % (0.0-2.0); EOSINOPHILS % 1.1 % (0.0-5.0); HEMOGLOBIN. 8.6 g/dL (12.0-16.0); LYMPHOCYTES % 11.2 % (20.0-50.0); MEAN CORPUSCULAR HEMOGLOBIN 31.9 pg (28.0-32.0); MEAN CORPUSCULAR VOLUME 92.1 fL (81.0-99.0); MEAN PLATELET VOLUME 11.6 fl (7.4-10.4); MONOCYTES % 5.6 % (2.0-8.0); NEUTROPHILS % 81.5 % (40.0-76.0); PLATELET 109 x1000/uL (130-400); RED BLOOD CELL COUNT 2.71 mill/uL (4.2-5.4); RED CELL DISTRIBUTION WIDTH 13.4 % (11.6-14.6)
[2021-04-01 12:00] VITALS: BP 97/38
[2021-04-01 16:00] VITALS: BP 99/37
[2021-04-01 20:00] VITALS: BP 106/51
[2021-04-01] MEDS: DEXT 5%/0.45% NACL 1000ML 1,000 ML IV SCH (20:02)
[2021-04-01] MEDS ORDERED: VANCOMYCIN 500 MG PREMIX 100 ML IV SCH (21:00)
[2021-04-01] MEDS: INSULIN GLARGINE UD 100 UNITS/ML SYR SUBCUT SCH (21:49)
[2021-04-01] MEDS: ATORVASTATIN CALCIUM 10MG TABLET PO SCH (23:26)
[2021-04-02] VITALS: BP 99/50
[2021-04-02] MEDS: PIPERACILLIN/TAZOBACTAM 3.375 G in DEXTROSE 5% WATER 50 ML IV SCH ×2 (00:48→08:49)
[2021-04-02] MEDS: MORPHINE SULFATE 2 MG/ML CPJ (NOT FOR IM USE) IV PRN (01:38)
[2021-04-02] MEDS: ZOLPIDEM TARTRATE 5MG TABLET PO PRN (02:46)
[2021-04-02 04:00] VITALS: BP 115/50
[2021-04-02] MEDS: BLOOD SUGAR DIAGNOSTIC STRIP TEST SCH ×3 (05:45→16:40)
[2021-04-02] MEDS: DILTIAZEM HCL 30MG TABLET PO SCH (06:41)
[2021-04-02] MEDS: INSULIN LISPRO 100 UNITS/ML SUBCUT SCH ×3 (06:42→17:10)
[2021-04-02 07:00] LABS: BASOPHILS % 0.8 % (0.0-2.0); EOSINOPHILS % 0.7 % (0.0-5.0); HEMATOCRIT. 24.5 % (36.0-48.0); HEMOGLOBIN. 8.5 g/dL (12.0-16.0); LYMPHOCYTES % 9.6 % (20.0-50.0); MEAN CORPUSCULAR HEMOGLOBIN 31.9 pg (28.0-32.0); MEAN PLATELET VOLUME 11.6 fl (7.4-10.4); MONOCYTES % 5.4 % (2.0-8.0); NEUTROPHILS % 83.5 % (40.0-76.0); PLATELET 107 x1000/uL (130-400); RED BLOOD CELL COUNT 2.66 mill/uL (4.2-5.4); RED CELL DISTRIBUTION WIDTH 13.4 % (11.6-14.6)
[2021-04-02 08:00] VITALS: BP 89/32
[2021-04-02] MEDS: AMIODARONE HCL 200 MG TABLET PO SCH (08:48)
[2021-04-02] MEDS: FOLIC ACID/VITAMIN B COMP W-C TABLET PO SCH (08:49)
[2021-04-02] MEDS: HEPARIN 5000 UNITS/ML VIAL SUBCUT SCH (08:50)
[2021-04-02] MEDS ORDERED: SODIUM CHLORIDE 0.9% 500 ML IV SCH (09:00)
[2021-04-02 12:00] VITALS: BP 96/37
[2021-04-02] MEDS: DEXT 5%/0.45% NACL 1000ML 1,000 ML IV SCH (14:15)
[2021-04-02 16:00] VITALS: BP 108/49
[2021-04-02] MEDS ORDERED: AMIODARONE HCL 200 MG TABLET PO SCH (21:00)
[2021-04-02] MEDS ORDERED: DILTIAZEM HCL 30MG TABLET PO SCH (21:00)
[2021-04-02] MEDS ORDERED: GENTAMICIN SULFATE 140 MG in SODIUM CHLORIDE 0.9% 100 ML IV SCH (21:00)
== END 2021-04-02 18:45 | disposition left against medical advice (07) | DRG 640 ==
LOC: ER 13:10 → 7EST 14:51 → EDBEDREQ 14:53 → EDBEDREQTM 14:53 → ENRESERV 16:10 → CVICU 03-31 03:00 → 7EST 03-31 18:44 → 7WST 04-01 15:10 → 7EST 04-02 00:35
PROVIDERS: ADMIT Family Medicine Adult Medicine; ATTEND Family Medicine Adult Medicine
PROC: 5A1D70Z Performance of Urinary Filtration, Intermittent, Less than 6 Hours Per Day (ICD-10-PCS; principal; 2021-03-30)
PROC: 5A1D70Z Performance of Urinary Filtration, Intermittent, Less than 6 Hours Per Day (ICD-10-PCS; 2021-04-01)
DX: E87.5 Hyperkalemia (principal); N18.6 End stage renal disease; N25.81 Secondary hyperparathyroidism of renal origin; I47.1 Supraventricular tachycardia; N39.0 Urinary tract infection, site not specified; I12.0 Hypertensive chronic kidney disease with stage 5 chronic kidney disease or end stage renal disease; E87.70 Fluid overload, unspecified; D64.9 Anemia, unspecified; E87.1 Hypo-osmolality and hyponatremia; E78.5 Hyperlipidemia, unspecified; K80.20 Calculus of gallbladder without cholecystitis without obstruction; K57.90 Diverticulosis of intestine, part unspecified, without perforation or abscess without bleeding; E11.22 Type 2 diabetes mellitus with diabetic chronic kidney disease; I48.91 Unspecified atrial fibrillation; E66.01 Morbid (severe) obesity due to excess calories; I25.10 Atherosclerotic heart disease of native coronary artery without angina pectoris; E11.39 Type 2 diabetes mellitus with other diabetic ophthalmic complication; Z53.29 Procedure and treatment not carried out because of patient's decision for other reasons; E11.51 Type 2 diabetes mellitus with diabetic peripheral angiopathy without gangrene; B96.89 Other specified bacterial agents as the cause of diseases classified elsewhere; Z20.822 Contact with and (suspected) exposure to COVID-19; I35.0 Nonrheumatic aortic (valve) stenosis; I95.9 Hypotension, unspecified; M48.061 Spinal stenosis, lumbar region without neurogenic claudication; E78.00 Pure hypercholesterolemia, unspecified; Z99.2 Dependence on renal dialysis; Z86.73 Personal history of transient ischemic attack (TIA), and cerebral infarction without residual deficits; Z83.3 Family history of diabetes mellitus; Z90.49 Acquired absence of other specified parts of digestive tract; Z98.891 History of uterine scar from previous surgery; Z91.19 Patient's noncompliance with other medical treatment and regimen; Z79.4 Long term (current) use of insulin; Z79.899 Other long term (current) drug therapy; Z88.4 Allergy status to anesthetic agent; Z74.01 Bed confinement status; Z91.15 Patient's noncompliance with renal dialysis; Z68.37 Body mass index [BMI] 37.0-37.9, adult
CPT/HCPCS: 36415; 36600; 71045; 74176; 80048; 80053; 80202; 81003; 82375; 82805; 82962; 84443; 85025; 86705; 86709; 86803; 87077; 87186; 87340; 87426; 93005; 93306; 93970; 99285; J1580; J1644; J1815; J2270; J2543; J3370; J7040; J7050; J7060; A4315

== ENCOUNTER 2022-08-03 15:47 | Inpatient (IN) | payer MEDICARE, MEDICAID ==
[~2022-08-03] VITALS: Ht 162.6 cm; Wt 88.9 kg
[2022-08-03 18:34] LABS: BASOPHILS % 1.4 % (0.0-2.0); EOSINOPHILS % 2.6 % (0.0-5.0); LYMPHOCYTES % 18.9 % (20.0-50.0); MEAN CORPUSCULAR VOLUME 97.8 fL (81.0-99.0); MEAN PLATELET VOLUME 8.7 fl (7.4-10.4); MONOCYTES % 9.4 % (2.0-8.0); NEUTROPHILS % 67.7 % (40.0-76.0); PLATELET 182 x1000/uL (130-400); RED BLOOD CELL COUNT 2.09 mill/uL (4.2-5.4); RED CELL DISTRIBUTION WIDTH 14.1 % (11.6-14.6)
[2022-08-03 18:42] LABS: CHLORIDE 100 mEq/L (98-107); HEMATOCRIT. 20.4 % (36.0-48.0); HEMOGLOBIN. 6.7 g/dL (12.0-16.0)
[2022-08-03] MEDS ORDERED: SODIUM POLYSTYRENE SULFONATE 15 G/60 ML BOT PO NR (19:15)
[2022-08-03] MEDS ORDERED: ACETAMINOPHEN 325MG TABLET PO PRN (19:15)
[2022-08-03] MEDS ORDERED: CLONIDINE 0.1MG TABLET PO PRN (19:15)
[2022-08-03] MEDS ORDERED: ONDANSETRON HCL 4MG/2ML INJ IV PRN (19:15)
[2022-08-03] MEDS ORDERED: MORPHINE SULFATE 4 MG/ML CPJ (NOT FOR IM USE) IV ONE (23:45)
[2022-08-03] MEDS: ATORVASTATIN CALCIUM 10MG TABLET PO SCH (23:52)
[2022-08-04] VITALS (10 sets, daily range): BP systolic 132–162; BP diastolic 44–68
[2022-08-04 05:28] LABS: BASOPHILS % 1.4 % (0.0-2.0); EOSINOPHILS % 2.8 % (0.0-5.0); HEMATOCRIT. 23.4 % (36.0-48.0); HEMOGLOBIN. 7.6 g/dL (12.0-16.0); LYMPHOCYTES % 22.5 % (20.0-50.0); MEAN CORPUSCULAR HEMOGLOBIN 31.7 pg (28.0-32.0); MEAN CORPUSCULAR VOLUME 96.9 fL (81.0-99.0); MEAN PLATELET VOLUME 8.4 fl (7.4-10.4); MONOCYTES % 10.6 % (2.0-8.0); NEUTROPHILS % 62.7 % (40.0-76.0); PLATELET 180 x1000/uL (130-400); RED BLOOD CELL COUNT 2.41 mill/uL (4.2-5.4); RED CELL DISTRIBUTION WIDTH 14.8 % (11.6-14.6)
[2022-08-04] MEDS: LOSARTAN POTASSIUM 50 MG TABLET PO SCH ×2 (08:07→20:02)
[2022-08-04] MEDS: AMLODIPINE 5MG TABLET PO SCH ×2 (08:07→09:00)
[2022-08-04] MEDS ORDERED: CINACALCET HCL 30MG TABLET PO SCH (09:00)
[2022-08-04] MEDS: MORPHINE SULFATE 2 MG/ML CPJ (NOT FOR IM USE) IV PRN ×2 (10:39→18:49)
[2022-08-04] MEDS: INSULIN GLARGINE 100 UNITS/ML SUBCUT SCH ×2 (10:44→22:16)
[2022-08-04] MEDS: SEVELAMER CARBONATE 800 MG TABLET PO SCH ×3 (11:00→18:41)
[2022-08-04] MEDS: HYDRALAZINE HCL 25MG TABLET PO SCH ×2 (11:01→20:02)
[2022-08-04 15:53] LABS: HEPATITIS B SURFACE AB < 3.1 mIU/mL
[2022-08-04 16:45] LABS: TOTAL IRON BINDING CAPACITY 235 ug/dL (250-450)
[2022-08-04] MEDS: PANTOPRAZOLE SODIUM 40 MG/VIAL IV SCH (16:52)
[2022-08-04 17:13] LABS: VITAMIN B12 SERUM 501 pg/mL (211-911)
[2022-08-04] MEDS: CINACALCET HCL 30MG TABLET PO SCH (18:41)
[2022-08-04 18:42] LABS: FERRITIN 597 ng/mL (10-291); HEPATITIS B SURFACE ANTIGEN NEGATIVE
[2022-08-04] MEDS: ATORVASTATIN CALCIUM 10MG TABLET PO SCH (20:02)
[2022-08-05] VITALS: BP 140/51
[2022-08-05 04:00] VITALS: BP 159/57
[2022-08-05 08:00] VITALS: BP 145/85
[2022-08-05] MEDS: AMLODIPINE 5MG TABLET PO SCH ×2 (09:00→09:34)
[2022-08-05] MEDS: SEVELAMER CARBONATE 800 MG TABLET PO SCH ×3 (09:33→18:23)
[2022-08-05] MEDS: PANTOPRAZOLE SODIUM 40 MG/VIAL IV SCH (09:34)
[2022-08-05] MEDS: HYDRALAZINE HCL 25MG TABLET PO SCH ×2 (09:34→20:06)
[2022-08-05] MEDS: LOSARTAN POTASSIUM 50 MG TABLET PO SCH ×2 (09:34→20:07)
[2022-08-05 10:42] LABS: BASOPHILS % 1.1 % (0.0-2.0); EOSINOPHILS % 2.2 % (0.0-5.0); HEMATOCRIT. 23.9 % (36.0-48.0); HEMOGLOBIN. 8.1 g/dL (12.0-16.0); LYMPHOCYTES % 14.5 % (20.0-50.0); MEAN CORPUSCULAR VOLUME 97.5 fL (81.0-99.0); MEAN PLATELET VOLUME 8.7 fl (7.4-10.4); MONOCYTES % 10.4 % (2.0-8.0); NEUTROPHILS % 71.8 % (40.0-76.0); PLATELET 186 x1000/uL (130-400); RED BLOOD CELL COUNT 2.45 mill/uL (4.2-5.4); RED CELL DISTRIBUTION WIDTH 14.9 % (11.6-14.6)
[2022-08-05] MEDS: INSULIN GLARGINE 100 UNITS/ML SUBCUT SCH ×2 (11:08→21:15)
[2022-08-05 12:00] VITALS: BP 158/61
[2022-08-05 16:00] VITALS: BP 152/81
[2022-08-05] MEDS ORDERED: DEXTROSE 50% WATER 50ML SYRINGE IV PRN (19:15)
[2022-08-05] MEDS ORDERED: NALOXONE HCL 0.4MG/ML VIAL IV PRN (19:30)
[2022-08-05 20:00] VITALS: BP 139/48
[2022-08-05] MEDS: CINACALCET HCL 30MG TABLET PO SCH (20:19)
[2022-08-05] MEDS: ATORVASTATIN CALCIUM 10MG TABLET PO SCH (20:19)
[2022-08-05] MEDS: BLOOD SUGAR DIAGNOSTIC STRIP TEST SCH (20:20)
[2022-08-05] MEDS: MORPHINE SULFATE 2 MG/ML CPJ (NOT FOR IM USE) IV PRN (20:20)
[2022-08-05] MEDS: INSULIN LISPRO 100 UNITS/ML SUBCUT SCH ×2 (20:20→20:28)
[2022-08-05] MEDS ORDERED: LACTULOSE 20G/30ML UDC PO PRN (21:15)
[2022-08-06] VITALS: BP 140/51
[2022-08-06] MEDS: MORPHINE SULFATE 2 MG/ML CPJ (NOT FOR IM USE) IV PRN ×2 (02:42→18:43)
[2022-08-06 04:00] VITALS: BP 152/49
[2022-08-06] MEDS: BLOOD SUGAR DIAGNOSTIC STRIP TEST SCH ×4 (05:58→20:36)
[2022-08-06] MEDS: INSULIN LISPRO 100 UNITS/ML SUBCUT SCH ×4 (05:58→20:36)
[2022-08-06] MEDS: SEVELAMER CARBONATE 800 MG TABLET PO SCH ×4 (07:40→18:22)
[2022-08-06 07:50] LABS: BASOPHILS % 1.1 % (0.0-2.0); EOSINOPHILS % 2.8 % (0.0-5.0); HEMATOCRIT. 23.8 % (36.0-48.0); HEMOGLOBIN. 7.9 g/dL (12.0-16.0); LYMPHOCYTES % 20.9 % (20.0-50.0); MEAN CORPUSCULAR HEMOGLOBIN 32.5 pg (28.0-32.0); MEAN CORPUSCULAR VOLUME 97.7 fL (81.0-99.0); MEAN PLATELET VOLUME 8.5 fl (7.4-10.4); MONOCYTES % 12.5 % (2.0-8.0); NEUTROPHILS % 62.7 % (40.0-76.0); PLATELET 191 x1000/uL (130-400); RED BLOOD CELL COUNT 2.44 mill/uL (4.2-5.4); RED CELL DISTRIBUTION WIDTH 14.5 % (11.6-14.6)
[2022-08-06] MEDS: PANTOPRAZOLE SODIUM 40 MG/VIAL IV SCH (09:26)
[2022-08-06] MEDS: AMLODIPINE 5MG TABLET PO SCH (09:27)
[2022-08-06] MEDS: INSULIN GLARGINE 100 UNITS/ML SUBCUT SCH ×2 (11:47→22:01)
[2022-08-06 12:00] VITALS: BP 142/58
[2022-08-06] MEDS: HYDRALAZINE HCL 25MG TABLET PO SCH ×2 (12:01→20:35)
[2022-08-06] MEDS: LOSARTAN POTASSIUM 50 MG TABLET PO SCH ×2 (12:01→20:35)
[2022-08-06 16:00] VITALS: BP 147/60
[2022-08-06] MEDS: DOCUSATE SODIUM 100MG CAPSULE PO SCH (18:22)
[2022-08-06] MEDS: CINACALCET HCL 30MG TABLET PO SCH (18:42)
[2022-08-06 20:00] VITALS: BP 141/53
[2022-08-06] MEDS: ATORVASTATIN CALCIUM 10MG TABLET PO SCH (20:35)
[2022-08-07] VITALS (14 sets, daily range): BP systolic 98–156; BP diastolic 39–57
[2022-08-07] MEDS: MORPHINE SULFATE 2 MG/ML CPJ (NOT FOR IM USE) IV PRN (01:07)
[2022-08-07] MEDS: BLOOD SUGAR DIAGNOSTIC STRIP TEST SCH ×3 (06:28→16:52)
[2022-08-07] MEDS: INSULIN LISPRO 100 UNITS/ML SUBCUT SCH ×3 (06:29→16:59)
[2022-08-07 06:47] LABS: BASOPHILS % 0.9 % (0.0-2.0); EOSINOPHILS % 2.2 % (0.0-5.0); HEMATOCRIT. 24.5 % (36.0-48.0); HEMOGLOBIN. 8.3 g/dL (12.0-16.0); LYMPHOCYTES % 13.8 % (20.0-50.0); MEAN CORPUSCULAR HEMOGLOBIN 32.9 pg (28.0-32.0); MEAN CORPUSCULAR VOLUME 97.2 fL (81.0-99.0); MEAN PLATELET VOLUME 8.9 fl (7.4-10.4); MONOCYTES % 11.4 % (2.0-8.0); NEUTROPHILS % 71.7 % (40.0-76.0); PLATELET 198 x1000/uL (130-400); RED BLOOD CELL COUNT 2.52 mill/uL (4.2-5.4); RED CELL DISTRIBUTION WIDTH 14.2 % (11.6-14.6)
[2022-08-07] MEDS: HYDRALAZINE HCL 25MG TABLET PO SCH (09:00)
[2022-08-07] MEDS ORDERED: BISACODYL 5MG TABLET PO SCH (09:00)
[2022-08-07] MEDS: LOSARTAN POTASSIUM 50 MG TABLET PO SCH (09:00)
[2022-08-07] MEDS: AMLODIPINE 5MG TABLET PO SCH (09:00)
[2022-08-07] MEDS: PANTOPRAZOLE SODIUM 40 MG/VIAL IV SCH (09:50)
[2022-08-07] MEDS: SEVELAMER CARBONATE 800 MG TABLET PO SCH ×3 (09:50→16:55)
[2022-08-07] MEDS: DOCUSATE SODIUM 100MG CAPSULE PO SCH ×2 (09:50→16:55)
[2022-08-07] MEDS: HYDROCORTISONE ACETATE 25MG SUPP PR SCH ×2 (10:00→12:14)
[2022-08-07] MEDS ORDERED: HEPARIN 5000 UNITS/ML VIAL SUBCUT NR (12:00)
[2022-08-07] MEDS ORDERED: EPOETIN ALFA-EPBX 4,000 UNIT/ML VIAL SUBCUT SCH (21:00)
[2022-08-07] MEDS ORDERED: INSULIN GLARGINE 100 UNITS/ML SUBCUT SCH (22:00)
== END 2022-08-07 18:45 | disposition home or self-care (01) | DRG 377 ==
LOC: ER 15:47 → SUPCPDRO 16:36 → MICUSO 20:49 → EDBEDREQTM 23:08 → EDBEDREQ 23:08 → EDBEDREQSVC 23:08 → 7EST 08-04 13:00
PROVIDERS: ADMIT Internal Medicine Nephrology; ATTEND Internal Medicine Nephrology
PROC: 30233N1 Transfusion of Nonautologous Red Blood Cells into Peripheral Vein, Percutaneous Approach (ICD-10-PCS; principal; 2022-08-04)
PROC: 5A1D70Z Performance of Urinary Filtration, Intermittent, Less than 6 Hours Per Day (ICD-10-PCS; 2022-08-04)
DX: K92.2 Gastrointestinal hemorrhage, unspecified (principal); N18.6 End stage renal disease; D62 Acute posthemorrhagic anemia; I12.0 Hypertensive chronic kidney disease with stage 5 chronic kidney disease or end stage renal disease; J90 Pleural effusion, not elsewhere classified; N25.81 Secondary hyperparathyroidism of renal origin; K59.00 Constipation, unspecified; E10.51 Type 1 diabetes mellitus with diabetic peripheral angiopathy without gangrene; E10.319 Type 1 diabetes mellitus with unspecified diabetic retinopathy without macular edema; E10.22 Type 1 diabetes mellitus with diabetic chronic kidney disease; E78.00 Pure hypercholesterolemia, unspecified; E10.40 Type 1 diabetes mellitus with diabetic neuropathy, unspecified; E10.649 Type 1 diabetes mellitus with hypoglycemia without coma; E87.5 Hyperkalemia; E78.5 Hyperlipidemia, unspecified; Z90.49 Acquired absence of other specified parts of digestive tract; Z91.199 Patient's noncompliance with other medical treatment and regimen due to unspecified reason; Z99.2 Dependence on renal dialysis; Z79.4 Long term (current) use of insulin; Z86.73 Personal history of transient ischemic attack (TIA), and cerebral infarction without residual deficits; Z79.899 Other long term (current) drug therapy
CPT/HCPCS: 36415; 71045; 80048; 80053; 82607; 82728; 82962; 83036; 83540; 83550; 83880; 84484; 85025; 85044; 86706; 86850; 86900; 86920; 87340; 90935; 93005; 93970; 97162; 99291; C9113; J0885; J1644; J1815; J2270; P9016

== ENCOUNTER → 2023-01-18 | Day surgery (SDC) | payer MEDICARE, MEDICAID ==
[~2023-01-18] MED LIST changes: +CRES10 PO; +MONT-46 PO; +ONDA4TAB50 PO; +REN800 PO; -ROSU10TA25 PO
== END | disposition home or self-care (01) ==
LOC: CARD 11:03
PROVIDERS: ATTEND Internal Medicine
DX: I48.91 Unspecified atrial fibrillation (principal); R00.1 Bradycardia, unspecified; I08.0 Rheumatic disorders of both mitral and aortic valves; J90 Pleural effusion, not elsewhere classified; Z79.4 Long term (current) use of insulin; Z79.899 Other long term (current) drug therapy; Z98.890 Other specified postprocedural states
CPT/HCPCS: 93306